=== PATIENT | female | born 1975 | race Caucasian/White ===

== ENCOUNTER → 2021-07-04 | Outpatient (CLI) | payer BC ==
[2021-07-04 09:34] LABS: HEMOGLOBIN 12.5 gm/dl (12.3-15.3); RED BLOOD COUNT 4.56 M/UL (4.00-5.10); WHITE BLOOD COUNT 9.3 K/UL (4.5-11.0)
[2021-07-04 09:54] LABS: BUN/CREATININE RATIO 18 (0-10)
[2021-07-05 10:15] LABS: CREATININE, URINE 77.3 mg/dL (Not Estab.); MICROALB/CREAT RATIO <4 (0-29)
== END ==
LOC: LAB 08:43
PROVIDERS: Internal Medicine
DX: E11.9 Type 2 diabetes mellitus without complications (principal); R53.83 Other fatigue; E78.5 Hyperlipidemia, unspecified; I10 Essential (primary) hypertension; E03.9 Hypothyroidism, unspecified; Z51.81 Encounter for therapeutic drug level monitoring; Z79.899 Other long term (current) drug therapy
CPT/HCPCS: 36415; 80053; 80061; 82043; 82570; 82607; 82746; 83036; 84439; 84443; 85025

== ENCOUNTER → 2021-08-09 | Outpatient (CLI) | payer BC ==
[2021-08-09 08:56] LABS: HEMOGLOBIN 13.1 gm/dl (12.3-15.3); RED BLOOD COUNT 4.81 M/UL (4.00-5.10); WHITE BLOOD COUNT 9.1 K/UL (4.5-11.0)
[2021-08-10 07:12] LABS: HBSAG SCREEN Negative (Negative); HEP B CORE AB, TOT Negative (Negative)
[2021-08-10 08:17] LABS: HIV AB/P24 AG SCREEN Non Reactive (Non Reactive)
[2021-08-10 22:07] LABS: HEPATITIS C QUANTITATION HCV Not Detected IU/mL (.)
[2021-08-11 00:07] LABS: ALT (SGPT) P5P 68 IU/L (0-40); APOLIPOPROTEIN A-1 118 mg/dL (116-209); AST (SGOT) P5P 66 IU/L (0-40); BILIRUBIN, TOTAL 0.4 mg/dL (0.0-1.2); CHOLESTEROL, TOTAL 201 mg/dL (100-199); FIBROSIS SCORE 0.16 (0.00-0.21); GGT 42 IU/L (0-60); GLUCOSE, SERUM 130 mg/dL (65-99); HAPTOGLOBIN 159 mg/dL (42-296); HEIGHT: 70 in (.); TRIGLYCERIDES 214 mg/dL (0-149); WEIGHT: 242 LBS (.)
[2021-08-12 15:13] LABS: STRONGYLOIDES IGG ANTIBODY Negative (Negative)
== END ==
LOC: EXRD 08-05 09:00 → US 07:47
PROVIDERS: Physician Assistant
DX: R74.8 Abnormal levels of other serum enzymes (principal); D72.19 Other eosinophilia; Z90.49 Acquired absence of other specified parts of digestive tract
CPT/HCPCS: 36415; 71046; 76705; 82172; 82247; 82465; 82728; 82947; 82977; 83010; 83540; 83550; 83883; 84207; 84425; 84450; 84460; 84478; 85025; 85610; 86682; 86704; 86706; 86708; 86709; 87340; 87389; 87522

== ENCOUNTER 2021-08-24 23:08 | Emergency (ER) | payer BC ==
[2021-08-24 23:54] LABS: HEMOGLOBIN 12.9 gm/dl (12.3-15.3); RED BLOOD COUNT 4.68 M/UL (4.00-5.10); WHITE BLOOD COUNT 10.6 K/UL (4.5-11.0)
[2021-08-25 00:58] LABS: BUN/CREATININE RATIO 18 (0-10)
[2021-08-25] MEDS ORDERED: ZOFRAN ODT 4 MG4 MG SL (02:43)
== END 2021-08-25 00:24 | disposition home or self-care (01) ==
LOC: ER1 23:08
PROVIDERS: Student in an Organized Health Care Education/Training Program
DX: R55 Syncope and collapse (principal); R11.2 Nausea with vomiting, unspecified; E11.9 Type 2 diabetes mellitus without complications; I10 Essential (primary) hypertension; E03.9 Hypothyroidism, unspecified
CPT/HCPCS: 71045; 80053; 82550; 82553; 84439; 84443; 84484; 85025; 93005; 96374; 99284; J2405

== ENCOUNTER → 2021-09-20 | Day surgery (SDC) | payer BC ==
[~2021-09-20] MED LIST: COZAAR25 MG PO; GLUCOPHAGE XR500 M1 PO; LEVOTHYROXINE88 MC1 PO; NORVASC10 MG PO; VITAMIN D31250 MCG PO; ZOFRAN ODT 4 MG4 MG SL
== END | disposition home or self-care (01) ==
LOC: OR 07:07
DX: R19.5 Other fecal abnormalities (principal); K64.1 Second degree hemorrhoids; E66.8 Other obesity; I10 Essential (primary) hypertension; E11.9 Type 2 diabetes mellitus without complications; Z83.71 Family history of colonic polyps; Z68.36 Body mass index [BMI] 36.0-36.9, adult
CPT/HCPCS: 82962; J2704; J7040